=== PATIENT | male | born 1965 | race Caucasian/White ===

== ENCOUNTER 2016-10-10 13:21 | Emergency (ER) | payer OTHER ==
--- NOTE | 2016-10-10 15:28 | CT ---
INDICATION: Transient blackout, amaurosis fugax - vision issues, resolved now. CT HEAD WITHOUT CONTRAST ONLY: Serial contiguous 2.5 and 5 mm sections were obtained through the brain without contrast 10/10/2016. No comparisons were available. Total exam DLP = 949.36 mGy-cm. The paranasal sinuses and mastoid air cells were well-aerated. No definite cranial abnormality was identified. No shift of midline structures or ventricular abnormalities were identified. Minimal calcification in the basal ganglia is likely not of clinical significance. Minimal calcifications noted in the internal carotid arteries. No definite abnormal areas of density were identified, including no evidence of bleeding sites or hematoma. Septum cavum pellucidum is noted - a normal variant. IMPRESSION: 1. No acute intracranial abnormality. 2. Minimal calcifications noted in internal carotid arteries compatible with early cerebrovascular disease. 3. CT brain otherwise unremarkable. Report was called to Dr. Mcmahon at 1455 hours on 10/10/2016. [facility]
[2016-10-10 17:47] VITALS: BP 139/91
--- NOTE | 2016-10-14 10:07 | ER ---
DATE SEEN: 10/10/2016 TIME SEEN: 1540 hours. 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 He actually lost vision on the 1 o'clock to 5 o'clock half, (the right side of a clock). This was unusual for him. No complete loss of vision. Intermittently, vision was slightly black. He described this as a blackout, but he did not fall nor did not lose consciousness. He was talking at the same time. He was meeting with his [employer] staff. He then went to the clinic. Clinic referred him to the ED for further evaluation. Right now, his symptoms have gone, he feels good. He has mild level headache, frontal headache. He denied eating his meal today, normally eats at 1400 to 1500 hours. Has not eaten a noon meal. No history of elevated blood pressure. Notes that he will feel different if he takes another coffee. He had breakfast this morning, he says toast and coffee, but did not have lunch. The patient denies seizure. He had head concussion once in high school. He thinks perhaps might have had other concussion because he rode [employer] and also wrestled at [facility]. PAST MEDICAL HISTORY: Significant for clavicle and rib fracture. He was hospitalized for kidney stones, passed kidney stone. No recent fever, chills, diabetes, heart disease, irregular heartbeat, chest pain, or lightheadedness. He notes that this dark spell is the third time he has had in the last 4 months. Usually, if he has not eaten lunch, he experiences these spells at 1400 to 1500 hours. Today, he drank regular coffee. The patient notes his has given him an OTC med, Ambersol, to help pass kidney stones. (Ambersol generic mcts-tqs-mpsckut medicine), uses baby aspirin daily and drinks less than 2 quarts of water a day, perhaps a quart. FAMILY HISTORY: Mother of heart valve leak, father at age 60 of dementia and diabetes. Paternal grandfather of congestive heart failure at age 60. The patient has two sisters and no brother. One sister is deaf. One sister this is young and alive and well. PHYSICAL EXAMINATION: VITAL SIGNS: Blood pressure 119/78, respirations 12, heart rate 73 and regular, oxygen saturation 99%, temperature is 36.7 degrees centigrade. GENERAL: Alert, mesomorphic athletic young man, who has good eye contact. He is well dressed and clean shaven. HEENT: PERRLA intact. Eyegrounds normal appearance. No retinal changes. Vision to confrontation is normal in all awan. EOMs normal. No duplication or diplopia. His eyes were examined with one eye covered and still both were normal each time his other eye is covered.NECK no bruits. HEART NO MURMUR , OCCAS IRREG BEAT, NO HEAV NO ABN PMI. LUNGS NO RALES NO WHEEZES NO RHONCHI ABDOMEN soft nontender, no masses, no guarding no bruits EXTREMITIES no pedal edema NEURO DTR's symmetrical, strength normal, gait normal, Romberg neg , no paresis , Ox theree, thought content normal, caluculation normal LABORATORY FINDINGS: White count 6700, PMNs 72, lymphocytes 18, monos 9, hemoglobin 15.8, the latter slightly elevated, platelets 202,000. RBC index is normal. Sodium 140, potassium 4.1, chloride 107, CO2 of 27. Troponin 0.01. Protein normal, also bilirubin, also AST and ALT normal. EKG is normal with bradycardia. He was monitored. He had intermittent episodes of premature PVCs, of which some were 3 beats apart, also 5 beats apart, some with 3 beats apart, and then go for period of time several minutes without any PVCs. No couplets of PVCs noted. EKG is otherwise normal. He had bradycardia of 55. Borderline short GA interval. DIAGNOSIS: AMAUROSIS FUGAX. ASSESSMENT: 1. History of transient loss of vision, rule out amaurosis fugax, doubtful as this could be considered for an older age person. 2. Possible hypoglycemia, not evident on his automated chemistry. 3. 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 He notes his hydration has decreased. He is used to drinking a lot of fluids, but he feels he probably drinks half the amount of fluid he needs to. 4. No evidence for orthostatic hypertension or other structural abnormality. PLAN: Follow up with his doctor in a week. He just completed his Holter monitor study this morning, approximately 2-3 hours before he had the episode of his dark black vision. Perhaps, he may have an arrhythmia that needs further evaluation. Pending Holter monitor analysis. The patient to follow up with his doctor on Thursday and return to the ED early if he has recurrent episodes this . /[id number] RAMILA/ALEKSANDR JAMA
--- NOTE | 2016-10-23 09:57 | ER ---
DATE SEEN: 10/10/2016 DIAGNOSES: 1. Amaurosis fugax. 2. Transient loss of vision. /[id number] RAMILA/ALEKSANDR
== END 2016-10-10 15:45 | disposition home or self-care (01) ==
LOC: FB.ED 13:21
DX: G45.3 Amaurosis fugax (principal); R00.1 Bradycardia, unspecified
CPT/HCPCS: 36415; 70450; 80053; 80305; 81001; 82962; 84484; 85025; 93005; 99284